=== PATIENT | female | born 1975 | race Caucasian/White ===

== ENCOUNTER 2024-04-06 21:23 | Outpatient (CLI) | payer BC, SELFPAY ==
[2024-04-06 22:51] LABS: Microalbumin/Creatinine Ratio 10.3
[2024-04-06 23:02] LABS: Creatinine,Urine Random 109 mg/dL (Not Estab.)
[2024-04-06 23:03] LABS: Chloride 110 mmol/L (98-107); Sodium 136 mmol/L (136-145)
[2024-04-06 23:06] LABS: Alanine Aminotransferase 34 U/L (12-78); Albumin/Globulin Ratio 1.7 (1.1-1.8); Alkaline Phosphatase 35 U/L (38-126); Aspartate Amino Transferase 39 U/L (14-36); Bilirubin,Total 0.7 mg/dl (0.2-1.3); Blood Urea Nitrogen 7 mg/dl (7-17); Carbon Dioxide 20 mmol/L (22.0-30.0); Cholesterol 237 mg/dl (140-200); Estimated Glomerular Filt Rate 107 ml/min (>60); GFR (African American) 130 ML/MIN (>60); Globulin 2.4 g/dL (1.3-3.2); Glucose 103 mg/dl (74-100); Total Protein,Serum 6.4 g/dl (6.3-8.2); Triglycerides 140 mg/dl (30-150); VLDL Cholesterol 28 mg/dL (0-40)
[2024-04-06 23:07] LABS: Chol/HDL Ratio 4.1 (1-3.5); HDL Cholesterol 58 mg/dl (40-60)
[2024-04-06 23:17] LABS: Direct LDL Cholesterol 169.52 mg/dL (100-129)
[2024-04-06 23:38] LABS: Thyroid Stimulating Hormone 1.68 uIU/mL (0.465-4.68)
== END 2024-04-06 23:59 | disposition home or self-care (01) ==
PROVIDERS: PCP Nurse Practitioner; Visit Provider Nurse Practitioner
DX: Z13.1 Encounter for screening for diabetes mellitus (principal); Z13.220 Encounter for screening for lipoid disorders; I10 Essential (primary) hypertension; R23.2 Flushing
CPT/HCPCS: 80053; 80061; 82043; 82570; 84443

== ENCOUNTER 2024-07-20 16:39 | Outpatient (CLI) | payer BC, SELFPAY ==
--- NOTE | 2024-07-20 16:40 | MM_ITS ---
PROCEDURE INFORMATION: Exam: MG Bilateral Screening 3D Mammography Exam date and time: 07/20/2024 4:48 PM Age: 48 years old Clinical indication: Screening examination TECHNIQUE: Imaging protocol: Bilateral Screening tomosynthesis and 2D mammography including computer-aided detection (CAD) when performed. COMPARISON: No relevant prior studies available. FINDINGS: MAMMOGRAPHY: Breast composition: The breasts are heterogeneously dense, which may obscure small masses. Mass: Coarse nodular parenchyma measuring up to 6.3 cm in greatest dimension in the left upper breast and up to 2.0 cm in the right upper breast may be on the basis of underlying cystic change. Architectural distortion: None. Calcifications: No suspicious calcifications. Asymmetric density: None. Skin thickening: None. Axillary adenopathy: None. IMPRESSION: Patient to return for complete bilateral breast ultrasound for further evaluation of bilateral breast masses ASSESSMENT: BI-RADS Category 0: Incomplete- Need Additional Imaging Evaluation
== END 2024-07-20 23:59 | disposition home or self-care (01) ==
LOC: RAD 16:40
PROVIDERS: PCP Nurse Practitioner; Visit Provider Nurse Practitioner
DX: Z12.31 Encounter for screening mammogram for malignant neoplasm of breast (principal)
CPT/HCPCS: 77063; 77067

== ENCOUNTER 2024-08-03 13:50 | Outpatient (CLI) | payer BC, SELFPAY ==
--- NOTE | 2024-08-03 14:00 | US_ITS ---
PROCEDURE INFORMATION: Exam: US Right Breast, Complete US Left Breast, Complete Exam date and time: 08/03/2024 2:25 PM Age: 48 years old Clinical indication: Recall on the basis of screening mammogram 07/20/2024 for further evaluation of coarse nodular parenchyma measuring up to 6.3 cm in greatest dimension in the left upper breast and up to 2.0 cm in the right upper breast may be on the basis of underlying cystic change. TECHNIQUE: Imaging protocol: Complete ultrasound of all four quadrants of the right breast and the retroareolar regions, including ultrasound of the axilla when performed. Complete ultrasound of all four quadrants of the left breast and the retroareolar regions, including ultrasound of the axilla when performed. COMPARISON: MG MM DIG SCREENING MAMM BI W/CAD 07/20/2024 4:48 PM MM US BREAST LIMITED LEFT 12/07/2019 11:23 AM FINDINGS: ULTRASOUND: Breast ultrasound findings: Bilateral sonography, all 4 quadrants, retroareolar and axilla. On the right, at 1 o'clock 3 cm from the nipple, oval hypoechoic avascular mass measuring 0.3 x 0.4 x 0.3 cm. At 3 o'clock 4 cm from the nipple, oval hypoechoic mass with avascular septations measuring 0.6 x 0.4 x 0.6 cm. At 5 o'clock 3 cm from the nipple, oval hypoechoic avascular mass measuring 0.5 x 0.2 x a 0.5 cm. At 6 o'clock 3 cm from the nipple, lobulated hypoechoic avascular mass measuring 1.0 by 0.7 x 0.4 cm, likely a complicated cluster of cysts. At 7 o'clock 4 cm from the nipple, oval hypoechoic avascular mass measuring 0.5 x 0.4 x 0.4 cm. At 9 o'clock 5 cm from the nipple, oval hypoechoic slightly lobulated avascular mass measuring 0.9 x 0.8 x 0.4 cm, likely complicated cluster of cysts. At 10 o'clock 5 cm from the nipple, oval hypoechoic avascular mass measuring 0.5 x 0.6 x 0.3 cm. At 10 o'clock 4 cm from the nipple, oval hypoechoic avascular mass measuring 0.5 x 0.5 x 0.3 cm. At 10 o'clock 3 cm from the nipple, two oval hypoechoic avascular masses measuring 0.8 x 0.5 cm. and 1.0 x 0.7 x 0.5 cm. At 11 o'clock 5 cm from nipple, oval hypoechoic lobulated avascular mass measuring 0.9 x 1.0 x 0.6 cm, likely complicated cluster of cysts. Retroareolar 3 o'clock, oval hypoechoic avascular mass measuring 0.6 x 0.5 x 0.4 cm. At 12 o'clock retroareolar, oval hypoechoic lobulated avascular mass measuring 1.8 x 1.0 x 1.8 cm, likely a complicated cluster of cysts. Sonographically unremarkable axillary lymph node. On the left, at 6 o'clock 2 cm from the nipple, oval hypoechoic mass with several flecks of related Doppler flow measuring 0.9 x 0.4 x 1.0 cm. Multiple large complicated avascular cysts, at 12 o'clock 5 cm from the nipple measuring 4.3 x 1.8 x 2.1 cm and 2.3 x 1.0 x 2.2 cm; a 2 o'clock 6 cm from the nipple measuring 6.0 x 4.3 x 6.0 cm. At 4 o'clock 7 cm from the nipple, oval hypoechoic avascular mass measuring 0.8 x 0.6 x 0.4 cm. At 6 o'clock 2 cm from the nipple, oval lobulated hypoechoic avascular mass, probably a cluster of cysts measuring 2.1 x 2.0 x 0.8 cm. At 10 o'clock 5 cm from the nipple, oval lobulated hypoechoic avascular mass, probably a cluster of cysts, measuring 1.3 x 1.6 x 0.8 cm with an adjacent similar mass measuring 2.0 x 2.2 x 1.3 cm. Sonographically unremarkable axillary lymph node. IMPRESSION: See comment Recommend ultrasound-guided biopsy of mass on the left at 6 o'clock 2 cm from the nipple with related Doppler flow. Multiple bilateral probably benign cysts and complicated cysts, suggest six-month follow-up left sonography unless otherwise clinically indicated. Largest cyst on the left at 2 o'clock measures 6.0 cm in corresponds to the dominant left-sided mammographic mass. (if the above recommended mass is malignant, consider adding breast MRI as well). ASSESSMENT: BI-RADS Category 4: Suspicious.
== END 2024-08-03 23:59 | disposition home or self-care (01) ==
LOC: RAD 13:51
PROVIDERS: PCP Nurse Practitioner; Visit Provider Nurse Practitioner
DX: R92.8 Other abnormal and inconclusive findings on diagnostic imaging of breast (principal)
CPT/HCPCS: 76641

== ENCOUNTER 2024-08-21 09:50 | Outpatient (CLI) | payer BC, SELFPAY ==
--- NOTE | 2024-08-21 10:30 | US_ITS ---
FINAL REPORT CLINICAL HISTORY: LT BREAST MASS -- LT BREAST FNA -- DR FELIPE OQUENDO -- 6:00 FINDINGS: ULTRASOUND GUIDED LEFT BREAST ASPIRATION HISTORY: Left breast mass TECHNIQUE: The left breast was prepped in a routine sterile fashion. Sterile technique and local anesthetic were utilized. Using ultrasound guidance, access was gained into the left breast mass. A [id number] was directed into the left breast lesion at 6:00. Lesion was cystic. Complete aspiration was performed. Lesion was no longer evident. The fluid was clear. Approximately 2 mls was aspirated. Fluid sent for cytologic laboratory analysis. IMPRESSION: 1. Successful imaging-guided aspiration and decompression of left breast mass Cytology report reveals no malignant cells. No further imaging follow-up is considered indicated. Patient may resume normal screening mammography. Authenticated and ERN
== END 2024-08-21 23:59 | disposition home or self-care (01) ==
LOC: RAD 09:51
PROVIDERS: PCP Nurse Practitioner; Visit Provider Nurse Practitioner
DX: N63.20 Unspecified lump in the left breast, unspecified quadrant (principal)
CPT/HCPCS: 19083